=== PATIENT | male | born 1990 | race Caucasian/White ===

== ENCOUNTER 2023-05-20 08:33 | Outpatient (RCR) | payer OTHER, SELFPAY ==
--- NOTE | 2023-05-20 09:52 | OPREHPOC ---
Outpatient Therapy Plan of Care This is a Multidisciplinary Plan of Care that may contain components documented by all disciplines (PT, OT, and ST.) PT Problem 1 PT Problem #1 Knowledge Deficit PT Goal 1 Goal Patient to demonstrate independence with HEP Target Visit 5 PT Problem 2 PT Problem #2 Pain PT Goal 1 Goal 1. Patient to report highest pain at 2/10 2. Patient to report ability to sleep with no disturbance due to L hip pain Target Visit 10 PT Problem 3 PT Problem #3 Impaired Range of Motion PT Goal 1 Goal 1. Patient to demonstrate 0-140deg of L knee ROM to improve ability to dress 2. Patient to demonstrate 90 deg of L hip flexion to return to stair naviation at PLOF Target Visit 10 PT Problem 4 PT Problem #4 Impaired Strength PT Goal 1 Goal Patient to demonstrate 5/5 L LE strength to return to house hold tasks at PLOF Target Visit 10 PT Problem 5 PT Problem #5 Impaired Functional Mobil PT Goal 1 Goal 1. Patient to ambulate with proper heel strike and no AD 2. Patient to score 50% improvement on LEFS Target Visit 10
--- NOTE | 2023-05-20 09:52 | PTOPEVAL1 ---
Assessment and note entered by Melyssa Dupont DPT Evaluation Information Assessment Status Evaluation Diagnosis L hip pain, weakness Onset 05/12/23 Subjective Information Patient reports on 05/12 he was at [facility] an fell on his left side with the L hip hitting the curb and fractured the L femoral head. He underwent L LINDSAY on 05/13. He has a posterior inscision with posterior precautions. He is full weight bearing and using B axillary crutches. He reports he has steps to get into the house. He has difficulty getting his leg into bed, dressing and completing house hold tasks. He works at [employer] and is not currently working. RTMD 05/27/23 Reported Pain Level Pain Score 2: Self Report Assessment PT Clinical Summary Mr. Montalvo is a 33 year old male who presents to PT with L hip pain and weakness following L LINDSAY. Patient demonstrates decreased L hip and knee ROM, decreased L LE strength and impaired gait impairing his ability to get into bed, dress, and complete house hold tasks. He would benefit from skilled PT to address impairments and return to OF. Plan of Care Interventions Electrical Stimulation,Gait Training,Hot Pack/Cold Pack,Manual Therapy,Neuro Re-education,Patient/ Caregiver Educati,Therapeutic Activities, Therapeutic Exercise PT Services Indicated Yes Treatment Frequency and 2x weekly for 10 visits Duration These treatments will address the objective and functional deficits as defined above. The patient will be advanced safely and appropriately in order for the patient to progress towards his/her prior level of function. Additional exercises will be introduced and as well as a comprehensive home exercise program upon discharge, if needed, ?to ensure carryover of functional gains achieved in the clinic. This treatment plan has been reviewed and agreement upon by the patient.
--- NOTE | 2023-06-24 15:53 | PCPTNOTE ---
patient called to cancel due to his furnace going out
--- NOTE | 2023-06-28 17:46 | OPREHPOC ---
Outpatient Therapy Plan of Care This is a Multidisciplinary Plan of Care that may contain components documented by all disciplines (PT, OT, and ST.) PT Problem 1 PT Problem #1 Knowledge Deficit PT Goal 1 Goal Patient to demonstrate independence with HEP Target Visit 5 Progress Met PT Problem 2 PT Problem #2 Pain PT Goal 1 Goal 1. Patient to report highest pain at 2/10 2. Patient to report ability to sleep with no disturbance due to L hip pain Target Visit 10 Progress Met PT Problem 3 PT Problem #3 Impaired Range of Motion PT Goal 1 Goal 1. Patient to demonstrate 0-140deg of L knee ROM to improve ability to dress 2. Patient to demonstrate 90 deg of L hip flexion to return to stair naviation at PLOF Target Visit 10 Progress Met PT Problem 4 PT Problem #4 Impaired Strength PT Goal 1 Goal Patient to demonstrate 5/5 L LE strength to return to house hold tasks at PLOF Target Visit 10 Progress Met PT Problem 5 PT Problem #5 Impaired Functional Mobil PT Goal 1 Goal 1. Patient to ambulate with proper heel strike and no AD 2. Patient to score 50% improvement on LEFS Target Visit 10 Progress Met
--- NOTE | 2023-06-28 17:46 | PTOPDC ---
Assessment and note entered by Melyssa Dupont DPT Evaluation Information Assessment Status Discharge Diagnosis L hip pain, weakness Onset 05/12/23 Subjective Information Patient reports he is not using the walker at home just carrying it with him at work. He reports MD was happy with progress but kept him on light duty to ensure he is not lifting heavy. He reports he feels he is ready to be discharged from PT services Reported Pain Level Pain Score 0: Self Report Assessment PT Clinical Summary Mr. Montalvo was seen for 10 visits of skilled PT with all goals met. He has returned to ambulating without AD and is demonstrating B heel strike. He reports no pain and denies sleep disturbance due to L hip pain. He has returned to work at light duty and all ADLs at home. He is independent with HEP and is appropriate for DC at this time. Plan of Care PT Services Indicated No
== END 2023-06-28 11:02 | disposition home or self-care (01) ==
LOC: CHSPT 08:33
PROVIDERS: Visit Provider Orthopaedic Surgery
DX: S72.002D Fracture of unspecified part of neck of left femur, subsequent encounter for closed fracture with routine healing (principal); Z96.642 Presence of left artificial hip joint; F17.210 Nicotine dependence, cigarettes, uncomplicated
CPT/HCPCS: 97110; 97112; 97116; 97161